=== PATIENT | female | born 1985 | race Caucasian/White ===

== ENCOUNTER → 2016-11-21 12:28 | Observation (INO) ==
[2016-11-21 10:49] LABS: Basophils # 0.1 K/mcL (0.0-0.2); Basophils % 0.5 %; Eosinophils # 0.2 K/mcL (0.0-0.6); Eosinophils % 1.3 %; Hematocrit 29.3 % (35.3-44.9); Hemoglobin 9.7 g/dL (11.5-15.4); Immature Granulocytes % 1.7 % (0-4); Lymphocytes # 1.7 K/mcL (0.6-4.6); Lymphocytes % 13.1 %; Mean Corpuscular HGB Conc 33.1 g/dL (31.6-35.5); Mean Corpuscular Hemoglobin 27.6 pg (28.0-33.3); Mean Corpuscular Volume 83.2 fL (83.0-100.0); Mean Platelet Volume 9.1 fL (9.4-12.4); Monocytes # 0.5 K/mcL (0.0-1.3); Monocytes % 4.2 %; Neutrophils # 10.2 K/mcL (1.6-8.9); Platelet Count 318 K/mcL (140-400); Red Blood Count 3.52 M/mcL (3.82-4.97); Red Cell Distribution Width 14.7 % (11.5-14.5); Segmented Neutrophils % 79.2 %
[2016-11-21 11:14] LABS: Thyroid Stimulating Hormone 1.056 mcIU/mL (0.350-4.840)
--- NOTE | 2016-11-21 12:57 | OB/GYN Progress Note ---
Date of Encounter: 11/21/16 Time of Encounter: 12:54 - Assessment and Plan (1) 27 weeks gestation of Current Visit: Yes Status: Acute (2) arrhythmia affecting , antepartum Current Visit: Yes Status: Acute arrhythmia heard during inital monioring by RN, but has no been heard by RN or CNM when in room after prolonged period. Discussed with Dr. Parks. Gao to discharge home. Subjective - Subjective Interval history: Pt at [address] Sahu heard arrhythmia during auscultation. Requested extended monitoring on L&D. Pt reports good movement, denies vaginal bleeding, contractions or leaking of fluid. Antepartum ROS: movement normal, no loss of fluid, no vaginal bleeding, no contractions Objective - Vital Signs Vital Signs: Intake and Output 11/20/16 11/21/16 11/21/16 23:59 07:59 15:59 Other: Weight 78.8 kg Patient Weight 11/21/16 23:59 Weight 78.8 kg - Exam FHR: auscultation normal FHR comments: baseline 135 appropriate for gestational age Auscultation: bilateral: normal Abdomen: Present: normal appearance, soft, gravid - Labs Labs: Abnormal lab results WBC 12.9 K/mcL (4.3-11.1) H 11/21/16 10:20 RBC 3.52 M/mcL (3.82-4.97) L 11/21/16 10:20 Hgb 9.7 g/dL (11.5-15.4) L 11/21/16 10:20 Hct 29.3 % (35.3-44.9) L 11/21/16 10:20 MCH 27.6 pg (28.0-33.3) L 11/21/16 10:20 RDW 14.7 % (11.5-14.5) H 11/21/16 10:20 MPV 9.1 fL (9.4-12.4) L 11/21/16 10:20 Neutrophils # 10.2 K/mcL (1.6-8.9) H 11/21/16 10:20 Glucose 1 Hr 50 gm 173 mg/dl (70-139) H 11/21/16 10:20
== END | disposition home or self-care (01) ==
LOC: 1NENULAB

== ENCOUNTER 2017-01-05 15:52 | Observation (INO) ==
--- NOTE | 2017-01-05 16:59 | OB/GYN Progress Note ---
Date of Encounter: 01/05/17 Time of Encounter: 16:40 - Assessment and Plan (1) Decreased movement during in third trimester, antepartum Status: Acute Reactive NST in labor and delivery. Kick counts reviewed. Follow-up in 48 hours in the office, [facility] warnings Qualifiers: Fetus number: single or unspecified fetus Qualified Code(s): O36.8130 - Decreased movements, third trimester, not applicable or unspecified (2) 34 weeks gestation of Status: Acute Patient receives care with me. She has been meeting milestones Subjective - Subjective Principal diagnosis: Decreased Movement Interval history: The patient presents reporting that she has not felt her baby move today, prior to arrival. She denies any loss of fluid or vaginal bleeding. She has not appreciated any contractions. On arrival she started appreciating movement. She has an appointment with me in 2 days. She has noticed some mild increase in swelling but denies headache, blurred vision or epigastric pain Antepartum ROS: other (As above) Objective - Vital Signs Vital Signs: Intake and Output 01/05/17 01/05/17 01/05/17 07:59 15:59 23:59 Other: Weight 81.2 kg Patient Weight 01/05/17 23:59 Weight 81.2 kg - Exam FHR: category 1 Abdomen: Present: normal appearance, soft, gravid. Absent: tenderness - Allied health notes Allied health notes reviewed: nursing
[2017-01-05 19:04] LABS: Amphetamine Screen,Urine Negative ng/mL (Cutoff=1000); Barbiturate Screen,Urine Negative ng/mL (Cutoff=200); Benzodiazepines Screen,Urine Negative ng/mL (Cutoff=200); Cannabinoid Screen,Urine Negative ng/mL (Cutoff = 50); Cocaine Screen,Urine Negative ng/mL (Cutoff= 300); Opiate Screen,Urine Negative ng/mL (Cutoff=300); Phencyclidine Screen,Urine Negative ng/mL (Cutoff=25)
== END 2017-01-05 16:36 | disposition home or self-care (01) ==
LOC: 1NENULAB
PROVIDERS: ADMIT Obstetrics & Gynecology; ATTEND Obstetrics & Gynecology

== ENCOUNTER 2017-02-08 16:10 | Inpatient (IN) ==
[2017-02-08 12:17] LABS: Basophils % 0.2 %; Eosinophils # 0.1 K/mcL (0.0-0.6); Eosinophils % 0.6 %; Hematocrit 30.4 % (35.3-44.9); Hemoglobin 9.7 g/dL (11.5-15.4); Immature Granulocytes % 1.7 % (0-4); Lymphocytes # 1.7 K/mcL (0.6-4.6); Lymphocytes % 9.6 %; Mean Corpuscular HGB Conc 31.9 g/dL (31.6-35.5); Mean Corpuscular Hemoglobin 24.4 pg (28.0-33.3); Mean Corpuscular Volume 76.6 fL (83.0-100.0); Mean Platelet Volume 9.5 fL (9.4-12.4); Monocytes % 5.6 %; Neutrophils # 14.4 K/mcL (1.6-8.9); Nucleated Red Blood Cells 0.2 /100 WBC (0); Platelet Count 395 K/mcL (140-400); Red Blood Count 3.97 M/mcL (3.82-4.97); Red Cell Distribution Width 17.6 % (11.5-14.5); Segmented Neutrophils % 82.3 %
--- NOTE | 2017-02-08 13:08 | OB/GYN Procedure Note ---
Section - Date of procedure: 02/08/17 Preop diagnosis: other (Labor, tetanic contractions, tachycardia 220) Post-op diagnosis: same Procedure: section, primary low transverse Surgeon: Rocky Vance Estimated blood loss (cc): 300 Anesthesia Type: Spinal section complications: none Disposition: PACU Specimens: Placenta, Cord blood - (s) A Infant Delivery Date: 02/08/17 Delivery Time: 12:25 Presentation: vertex Route of delivery: other (Primary ) Gender: Male Viability: Viable Pounds: 7 Ounces: 4 at 1 minute: 7 at 5 minutes: 4 Shoulder Dystocia: not encountered Specimens collected: cord blood Placenta: spontaneous Cord: nuchal cord (Tight, 2), 3 umbilical vessels - Narrative Narrative: Patient is a 3 32-year-old 4 para 3 female presented at 39 weeks and 1 day gestation with reported onset of low back and hip pain at approximately 9: 15 this morning. She denied bleeding or leakage of fluid. She states she was having contractions but mostly just constant pain. She denied fever or any illness. She pacific we denied dysuria. Upon arrival heart rate was 180s to 190s continued to increase to the 220s with decreased variability. She was afebrile and her cervix was 3 cm dilated. Her abdomen was not particularly tender. Because of the tachycardia and decreased variability of unknown etiology and the fact the patient was only 3 cm dilated decision was made to proceed with urgent primary section. Description of procedure: Patient was taken operating room where spinal anesthesia was administered she was prepped and draped in usual sterile fashion bladder was already being drained of clear urine. Once adequate anesthesia was determined scalpel was used to make a Pfannenstiel skin incision. This was taken down the rectus fascia which was incised the midline. Fascial incision was extended bluntly bilaterally. Rectus muscles were divided and the peritoneum was entered bluntly. Peritoneal incision was extended bluntly bilaterally bladder blade was placed and scalp was used to make a low transverse uterine incision. Membranes were ruptured to clear fluid and was delivered from vertex presentation. There was an tight nuchal cord 2 that was reduced prior to delivery of infant Infant was immediately vigorous with cry and was taken to Dr. Rahman who was in attendance. weight was determined to be 7 lbs. 4 oz. with Apgars of 7 at 1 minute and 8 at 5 minutes. Placenta was delivered manually there was no evidence of abruption. Uterine cavity was massaged free of all residual tissue. Uterus was closed 0 Vicryl in running lock stitch. Irrigation was performed hemostasis was ensured. Fascia was closed with 0 Vicryl in a running manner. After closure of fascia again irrigation was performed hemostasis was ensured. Skin edges reapproximated with 4-0 Vicryl. All sponge and instruments counts are correct patient was taken recovery in good condition.
--- NOTE | 2017-02-08 13:16 | OB/GYN History & Physical ---
Date of Encounter: 02/08/17 Time of Encounter: 13:14 Assessment and Plan (1) 39 weeks gestation of Current visit: Yes Status: Acute Patient presents with complaint of low back and hip pain as well as contractions. On monitored she appears to be having possible to tetanic contractions and heart rate is 220 beats a minute with decreased variability. Discussed with patient options and will proceed with urgent section. Consent is obtained. (2) tachycardia affecting management of mother Current visit: Yes Status: Acute History of Present Illness Chief complaint: The back pain, hip pain, contractions HPI: Ms. Brunner is a 32 year old female 4 para 3 female at 39 and one sevenths weeks gestation presents with complaint of onset of low back and hip pain and contractions at 9:15 this morning on arrival she denies bleeding or leakage of fluid. She reports good movement. has been complicated only by anemia for which she takes iron. On arrival heart rate was noted to be to 220 beats a minute we were uncertain of etiology. Patient denies smoking or any recent signs or symptoms of infection. Past Med Surg Social Fam HX - Past Medical History Source: patient, old records reviewed Medical history: no medical history Psychiatric history: no psych history - Past Surgical History Surgical History: other - Social History Smoking Status: Never smoker Smokeless Tobacco Status: No Alcohol use: none Drug use: none - Family History Mother Adopted: No Living Status: Still Living Hx Family Cardiac Disorders: Yes (htn) Hx Family Endocrine Disorder: Yes (dm) Obstetrical History - Pregnancies : 4 Para: 3 Medications and Allergies Formula Tablet 1 tab PO DAILY 11/21/16 [History] Vitamin D 1 tab PO DAILY 11/21/16 [History] Ferrous Sulfate [Iron] 325 mg PO DAILY 01/05/17 [History] 3 Allergy/AdvReac Type Severity Reaction Status Date / Time Sulfa (Sulfonamide Allergy Rash Verified 02/08/17 11:47 Antibiotics) Exam - Constitutional Constitutional: well developed, well nourished, moderate distress (With contractions, hip pain and back pain) - HEENT HEENT: EOMI, PERRL - Neck Neck exam: full ROM - Lungs Respiratory exam: CTAB - Cardiovascular Cardiovascular exam: RRR - Abdomen Abdomen: Present: gravid, non tender - Extremities Extremities exam: full ROM Deep Tendon Reflex Grade: 2+ Normal - Cervix Dilation: 3 Effacement: 90 Station: -1 - Uterus Uterus exam: Present: enlarged Results Result Diagrams: 02/08/17 11:45 Abnormal lab results WBC 17.5 K/mcL (4.3-11.1) H 02/08/17 11:45 Hgb 9.7 g/dL (11.5-15.4) L 02/08/17 11:45 Hct 30.4 % (35.3-44.9) L 02/08/17 11:45 MCV 76.6 fL (83.0-100.0) L 02/08/17 11:45 MCH 24.4 pg (28.0-33.3) L 02/08/17 11:45 RDW 17.6 % (11.5-14.5) H 02/08/17 11:45 Neutrophils # 14.4 K/mcL (1.6-8.9) H 02/08/17 11:45 Nucleated RBCs/100 WBC 0.2 /100 WBC (0) H 02/08/17 11:45 All other labs normal. - VTE Reasons for not Prescribing Prophylaxis: Treatment not Indicated - Low risk for VTE
[~2017-02-08 16:10] MED LIST: *HR* FentaNYL (PF) 100 MCG/2 ML VIAL ONE; *HR* Meperidine 25 MG/ML SYRINGE IVP PRN; *HR* Morphine 2 MG/ML SYRINGE IVP PRN; *HR* Morphine Sulfate/PF 5 MG/10 ML AMPUL ONE; *HR* OxyCODONE/APAP 5/325 TABLET PO PRN; *HR* Oxytocin 10 UNIT/ML VIAL IM ONE; *HR* Phenylephrine 10 MG/ML VIAL ONE; *HR* Promethazine 25 MG/ML VIAL IVP PRN; Ondansetron 4 MG/2 ML VIAL IVP ONE; Ondansetron 4 MG/2 ML VIAL ONE; Oxytocin 20 units/ LR 1000 mL 20 UNIT/1,000 ML BAG IVC ONE; Ringers Solution, Lactated 1,000 ML IVC SCH; Ringers Solution, Lactated 1,000 ML ONE; Ringers Solution, Lactated 500 ML IVC ONE; ceFAZolin 2,000 MG in D5% in Water 100 ML IVPB ONE
[2017-02-08] MEDS ORDERED: Ondansetron 4 MG/2 ML VIAL IVP PRN (19:48)
[2017-02-08] MEDS ORDERED: Metoclopramide 10 MG/2 ML VIAL IVP PRN (19:48)
[2017-02-08] MEDS ORDERED: Rho Immune Globulin 1,500 UNIT SYRINGE IM ONE (19:48)
[2017-02-08] MEDS ORDERED: Ringers Solution, Lactated 1,000 ML IVC SCH (19:48)
[2017-02-08] MEDS ORDERED: Simethicone 80 MG TAB.CHEW PO PRN (19:48)
[2017-02-08] MEDS ORDERED: Naloxone 0.4 MG/ML INJ IVP PRN (19:48)
[2017-02-08] MEDS ORDERED: Sennosides 8.6 MG TABLET PO PRN (19:48)
[2017-02-08] MEDS ORDERED: Oxytocin 20 units/ LR 1000 mL 20 UNIT/1,000 ML BAG IVC SCH (19:48)
[2017-02-08] MEDS ORDERED: Scopolamine Patch 1.5 MG PATCH.TD72 TD ONE (20:12)
[2017-02-08] MEDS ORDERED: *HR* Promethazine 25 MG/ML VIAL IVP PRN (20:13)
[2017-02-08] MEDS ORDERED: Ringers Solution, Lactated 500 ML IVC ONE (20:13)
[2017-02-08] MEDS ORDERED: Acetaminophen IV 1,000 MG/100 ML INFUS..BTL IVPB ONE (23:38)
[2017-02-09] MEDS: *HR* OxyCODONE/APAP 5/325 TABLET PO PRN ×3 (05:38→18:28)
[2017-02-09 06:16] LABS: Basophils # 0.1 K/mcL (0.0-0.2); Basophils % 0.3 %; Eosinophils % 0.2 %; Hematocrit 24.4 % (35.3-44.9); Immature Granulocytes % 1.7 % (0-4); Lymphocytes # 2.2 K/mcL (0.6-4.6); Lymphocytes % 9.4 %; Mean Corpuscular Hemoglobin 24.4 pg (28.0-33.3); Mean Corpuscular Volume 76.3 fL (83.0-100.0); Monocytes # 1.8 K/mcL (0.0-1.3); Monocytes % 7.8 %; Neutrophils # 18.6 K/mcL (1.6-8.9); Nucleated Red Blood Cells 0.3 /100 WBC (0); Platelet Count 349 K/mcL (140-400); Red Cell Distribution Width 17.9 % (11.5-14.5); Segmented Neutrophils % 80.6 %
[2017-02-09 06:17] LABS: Hemoglobin 7.8 g/dL (11.5-15.4)
[2017-02-09] MEDS: Ibuprofen 600 MG TABLET PO PRN ×3 (08:50→21:35)
[2017-02-09] MEDS: Prenatal Vit/FA 1 EACH TABLET PO SCH (08:50)
--- NOTE | 2017-02-09 08:50 | OB/GYN Progress Note ---
Date of Encounter: 02/09/17 Time of Encounter: 08:48 - Assessment and Plan (1) Status post section Current Visit: Yes Status: Acute patient doing very well, , lochia light, cont current inpt care Subjective - Subjective Patient reports: appetite normal, voiding normally, pain well controlled, ambulating normally : doing well Objective - Vital Signs Latest vital signs: Vital Signs Temp Pulse Resp BP Pulse Ox 02/09/17 07:30 98.7 F 83 16 105/69 02/09/17 04:25 98.7 F 86 16 108/67 97 02/08/17 23:30 98.6 F 96 16 126/79 99 02/08/17 21:30 99.9 F H 110 16 111/75 95 02/08/17 19:24 99.8 F H 114 18 112/68 98 02/08/17 18:30 98.8 F 114 18 121/77 99 02/08/17 17:25 98.9 F 110 16 115/71 98 02/08/17 17:00 98.7 F 110 18 120/62 98 02/08/17 16:30 99.0 F 112 18 112/75 98 Intake and Output 02/08/17 02/09/17 02/09/17 23:59 07:59 15:59 Intake Total 1650 / 1650 1400 / 1400 Output Total 300 / 300 1075 / 1075 Balance 1350 / 1350 325 / 325 Intake: IV Fluids 1000 / 1000 100 / 100 Lactated Ringers 1,000 ML As . 500 / 500 ROUTE .STK-MED ONE Rx#: [id number] Ofirmev 1,000 mg/100 ml 1,000 100 / 100 mg In 100 ml @ 400 mls/hr IVPB ONCE ONE Rx#:[id number] Oral 150 / 150 300 / 300 Other 500 / 500 1000 / 1000 Output: Catheter 300 / 300 1075 / 1075 Other: Weight 77.819 kg 76.771 kg Patient Weight 02/09/17 23:59 Weight 76.771 kg - Exam Lungs: bilateral: normal Chest: Normal S1, Normal S2 Extremities: Present: normal Abdomen: Present: normal appearance Incision: Present: dressed Uterus: Present: normal - Labs Labs: Laboratory Results - last 24 hr 02/08/17 02/09/17 11:45 06:06 WBC 17.5 H 23.1 H RBC 3.97 3.20 L Hgb 9.7 L 7.8 L D Hct 30.4 L 24.4 L MCV 76.6 L 76.3 L MCH 24.4 L 24.4 L MCHC 31.9 32.0 RDW 17.6 H 17.9 H Plt Count 395 349 MPV 9.5 9.0 L Immature Gran % 1.7 1.7 Seg Neutrophils % 82.3 80.6 Lymphocytes % 9.6 9.4 Monocytes % 5.6 7.8 Eosinophils % 0.6 0.2 Basophils % 0.2 0.3 Neutrophils # 14.4 H 18.6 H Lymphocytes # 1.7 2.2 Monocytes # 1.0 1.8 H Eosinophils # 0.1 0.0 Basophils # 0.0 0.1 Nucleated RBCs/100 WBC 0.2 H 0.3 H
[2017-02-10] MEDS: *HR* OxyCODONE/APAP 5/325 TABLET PO PRN ×2 (03:14→08:54)
[2017-02-10] MEDS: Ibuprofen 600 MG TABLET PO PRN (06:37)
--- NOTE | 2017-02-10 08:05 | Discharge Summary ---
Date of Encounter: 02/10/17 Time of Encounter: 08:02 - Discharge Diagnosis (1) anemia Priority: Secondary Status: Acute Comments: Continue ferrous sulfate BID (2) Status post section Priority: Primary Status: Acute Comments: Continue routine /postop care discharge home today follow up in office with Dr. Vance in 2 weeks for incision check - Discharge Medications Prescriptions: OxyCODONE/APAP 5/325 [Percocet 5/325 MG] 1 each PO Q4HR PRN #30 tablet PRN Reason: Moderate pain 4-6 Ibuprofen [Motrin] 600 mg PO Q6HR PRN #60 tablet PRN Reason: Cramping Docusate [Colace] 100 mg PO BID #30 capsule Ferrous Sulfate 325 mg PO BID #30 tablet Home Medications: Formula Tablet 1 tab PO DAILY 11/21/16 [History] Vitamin D 1 tab PO DAILY 11/21/16 [History] Docusate [Colace] 100 mg PO BID #30 capsule 02/10/17 [Rx] Ferrous Sulfate 325 mg PO BID #30 tablet 02/10/17 [Rx] Ibuprofen [Motrin] 600 mg PO Q6HR PRN #60 tablet 02/10/17 [Rx] OxyCODONE/APAP 5/325 [Percocet 5/325 MG] 1 each PO Q4HR PRN #30 tablet 02/10/17 [Rx] Allergies/Adverse Reactions: 3 Allergy/AdvReac Type Severity Reaction Status Date / Time Sulfa (Sulfonamide Allergy Rash Verified 02/08/17 11:47 Antibiotics) Data Procedures and tests throughout hospitalization: Laboratory Tests 02/08/17 02/09/17 11:45 06:06 WBC 17.5 H 23.1 H RBC 3.97 3.20 L Hgb 9.7 L 7.8 L D Hct 30.4 L 24.4 L MCV 76.6 L 76.3 L MCH 24.4 L 24.4 L MCHC 31.9 32.0 RDW 17.6 H 17.9 H Plt Count 395 349 MPV 9.5 9.0 L Immature Gran % 1.7 1.7 Seg Neutrophils % 82.3 80.6 Lymphocytes % 9.6 9.4 Monocytes % 5.6 7.8 Eosinophils % 0.6 0.2 Basophils % 0.2 0.3 Neutrophils # 14.4 H 18.6 H Lymphocytes # 1.7 2.2 Monocytes # 1.0 1.8 H Eosinophils # 0.1 0.0 Basophils # 0.0 0.1 Nucleated RBCs/100 WBC 0.2 H 0.3 H Date of admission: 02/08/17 20:21 Discharging clinician: Jil Harris Anticipated date of discharge: 02/10/17 - Patient Status Disposition: Home, Self-Care Condition: Good Functional capacity at discharge: independent ambulation - Discharge Instructions Follow Up With: Rocky Vance MD [Partnered Physician] - - Diet and Activity Activity: increase activity as tolerated Diet: regular diet Hospital Course Procedures: [facility] report reviewed by RUCHI Thornton Reason for admission: active labor Delivery: section Episiotomy: none Laceration: none Other procedures: none complications: none Discharge diagnosis: IUP at term delivered baby: male (breast feeding) Time Attestation: Total time spent providing and/or coordinating discharge services: Time Spent: Less than 30 minutes - VTE Reasons for not Prescribing Prophylaxis: Treatment not Indicated - Low risk for VTE Documentation of Mechanical Device: Intermittent pneumatic compression device Exam - Constitutional Vitals: Temp Pulse Resp BP Pulse Ox 97.7 F 83 16 126/72 97 02/09/17 21:39 02/09/17 21:39 02/09/17 21:39 02/09/17 21:39 02/09/17 21:39 General appearance IM: A&O X 3, pleasant, answers questions appropriately - Respiratory Respiratory exam: Present: CTAB - Cardiovascular Cardiovascular exam IM: Present: RRR, +S1, +S2 - GI/Abdominal GI/Abdominal exam IM: normal bowel sounds Incision: normal, dry, intact, other (medipore dressing removed, steri strips and binder) - Uterine Tone: Firm Uterus Position: 2 Fingers Below Umbilicus, Midline - Extremities Exam Extremities exam IM: Present: full ROM, normal capillary refill, normal inspection - Neurological Exam Neurological exam: alert, oriented X3, reflexes normal
[2017-02-10 08:12] VITALS: BP 124/75
[2017-02-10] MEDS: Prenatal Vit/FA 1 EACH TABLET PO SCH (08:52)
[2017-02-10] MEDS ORDERED: Measles/Mumps/Rubella Vacc 0.5 ML VIAL SQ ONE (11:30)
== END 2017-02-10 12:38 | disposition home or self-care (01) | DRG 540 ==
LOC: 1NENULAB → 1NENUOBS 16:10
PROVIDERS: ADMIT Obstetrics & Gynecology; ATTEND Obstetrics & Gynecology